=== PATIENT | female | born 1965 | race African-American/Black ===

== ENCOUNTER 2018-10-03 11:51 | Emergency (ER) | payer MEDICARE, OTHER ==
[2018-10-03] MEDS ORDERED: Azithromycin 250 MG TAB ONE (12:40)
[2018-10-03] MEDS ORDERED: Benzonatate 100 MG CAP ONE (12:40)
--- NOTE | 2018-10-03 22:27 | RAD ---
CHEST TWO VIEWS: 10/03/18 Comparison is made with the 07/12/18 study. The heart is moderately enlarged, probably a little more so than the 2018 film. The upper lobe vessels do not appear grossly congested. There is a little hazi ness in the lung bases, some of which is due to overlying soft tissues. There is a little more focal haziness to the right of the heart on the PA film though I cannot absolutely confirm an infiltrate h ere on the lateral. Serial films and further studies may be needed to assess if this slight increase in density to the right of the heart is real (perhaps infection) or not. IMPRESSION: 1. Cardiomegaly without clear congestive change. 2. Very slight increase in density to the right of the heart. Further followup needed to tell if it is significant or not. POS: HOME
== END 2018-10-03 12:48 | disposition home or self-care (01) ==
LOC: BURERS 11:51
DX: J18.9 Pneumonia, unspecified organism (principal); E11.9 Type 2 diabetes mellitus without complications; E78.5 Hyperlipidemia, unspecified; I25.2 Old myocardial infarction; Z87.891 Personal history of nicotine dependence
CPT/HCPCS: 71046; 87804

== ENCOUNTER 2018-10-11 16:39 | Emergency (ER) | payer MEDICARE, OTHER ==
[2018-10-11] MEDS ORDERED: Lidocaine Viscous Sol 2% 15 ml UD Cup ONE (16:54)
[2018-10-11] MEDS ORDERED: Mag-Al Plus 1200 MG/1200 MG/120 MG/30 ML UDCUP ONE (16:54)
[2018-10-11 17:14] LABS: #Basophils 0.1 thou/uL (0.0-0.2); #Eosinphils 0.1 thou/uL (0.0-0.7); #Lymphocytes 1.9 thou/uL (1.20-3.40); #Monocytes 0.8 thou/uL (0.11-0.59); #Neutrophils 5.2 thou/uL (1.40-6.50); %Basophils 1.4 % (0.0-1.0); %Eosinophils 0.7 % (0.0-10.0); %Lymphocytes 23.5 % (21.0-51.0); %Monocytes 9.6 % (0.0-10.0); %Neutrophils 64.9 % (42.0-75.0); Hemoglobin 14.4 g/dL (12.0-16.0); Mean Corpuscular HGB CONC 32.9 g/dL (32.0-36.0); Mean Corpuscular Hemoglobin 26.3 pg (27.0-31.0); Platelet Count 295 thou/uL (130-400); RBC Distribution Width 15.5 % (11.5-14.5); Red Blood Cell (RBC) Count 5.47 mill/uL (4.20-5.40); White Blood Cell (WBC) Count 8.1 thou/uL (4.8-10.8)
[2018-10-11] MEDS ORDERED: predniSONE 20 MG TAB ONE (17:19)
[2018-10-11 17:29] LABS: ALT (SGPT) 74 U/L (8-55); AST (SGOT) 44 U/L (5-34); Albumin 3.7 g/dL (3.5-5.0); Alkaline Phosphatase 120 U/L (40-150); Anion Gap 15 mmol/L (10-20); BUN (Urea Nitrogen) 9 mg/dL (9.8-20.1); Bilirubin, Total 2.3 mg/dL (0.2-1.2); Calc. Creatinine Clearance 0 mL/min (70-130); Calcium 8.6 mg/dL (7.8-10.44); Carbon Dioxide 23 mmol/L (22-29); Chloride 101 mmol/L (98-107); Estimated GFR-MDRD 72; Glucose 212 mg/dL (70-105); Lipase 23 U/L (8-78); Potassium 3.8 mmol/L (3.5-5.1); Protein, Total 6.7 g/dL (6.0-8.3); Sodium 135 mmol/L (136-145)
[2018-10-11] MEDS ORDERED: Haloperidol Lactate 5 MG/ML VIAL ONE (17:29)
[2018-10-11 17:49] LABS: CKMB 3.6 ng/mL (0-6.6)
[2018-10-11 17:52] LABS: Acetaminophen Less than 6.0 mcg/mL (10.0-30.0); Alcohol Less than 10 mg/dL (Less than 10); Salicylate Less than 8.0 mg/dL (15.0-30.0)
[2018-10-11] MEDS ORDERED: Cefepime 1 GM VIAL ONE (18:17)
--- NOTE | 2018-10-11 18:28 | RAD ---
PORTABLE CHEST: Date: 10-11-18 An AP portable film at 1649 is compared with an 07-12-18 study. FINDINGS: There is some opacity in each lower lobe. The upper lobes are relatively clear. I am not impressed by any significant vascular congestion. The heart is mildly enlarged. There are no observable effusions . IMPRESSION: Bibasilar patchy density. See CT report to follow. POS: HOME
[2018-10-11] MEDS ORDERED: Sterile Water 100 ML ONE (18:32)
--- NOTE | 2018-10-11 18:45 | CT ---
CT ABDOMEN AND PELVIS WITH CONTRAST: Date: 10-11-[address] of the abdomen and pelvis was done for evaluation of nausea and vomiting. The patient has a lso been coughing and wheezing. Comparison: CT angio of chest, 07-12-18. FINDINGS: The major finding on this study is patchy dense alveolar opacities in each lower lobe. Each is quite dense and is devoid of air bronchograms. The periphery of the lungs is spared. There are no signs of significant pleural fluid. There were some somewhat patchy densities present on the June scan, bu t these were more widespread and in different locations. The previous findings were thought to be jacques eolar edema. The vary high density of the findings today suggest entities such as pulmonary hemorrhag e. Unusual infections should be considered, for example fungal infections. These infiltrative areas a re fleeting in that they have changed locations since June making less common entities such as al veolar proteinosis unlikely. Bronchoscopy is recommended for evaluation. The visible portions of the patient's heart shows global cardiac enlargement. I would note that the patient's plain chest radiogr aph shows minimal congestion of upper lobe vessels. The liver is slightly generous in size but otherwise appears normal, as does the spleen, pancreas, ad renal glands, kidneys, and abdominal aorta. There might be a tiny calcification in the gallbladder bu t this is equivocal at best and would be better assessed by ultrasound. The bowel shows no distention, wall thickening, or becca intestinal inflammatory change. The appendix appears normal. CT of the pelvis shows no abnormal fluid collections, masses, or free fluid. IMPRESSION: 1. Very dense alveolar infiltrates in the lower lobes bilaterally without pleural fluid and in differ ent locations than similar findings seen in June. See discussion above. Entities such as pulmonar y hemorrhage, or unusual infections should be some of the leading possibilities. Alveolar edema seems unlikely today in the absence of pleural fluid and other typical findings of CHF. 2. Mild hepatic enlargement without any internal focal findings. To some extent this could even be du e to passive congestion. Findings discussed with Dr. Loo at 1805 on 10-11-18. POS: HOME
== END 2018-10-11 18:50 | disposition short-term general hospital (02) ==
LOC: BURERS 16:39
DX: J18.9 Pneumonia, unspecified organism (principal); E11.9 Type 2 diabetes mellitus without complications; F31.9 Bipolar disorder, unspecified; E78.5 Hyperlipidemia, unspecified; I25.2 Old myocardial infarction; Z87.891 Personal history of nicotine dependence
CPT/HCPCS: 71045; 74177; 80053; 80307; 82553; 83605; 83690; 83880; 84484; 85025; 87040; 87804; 96361; 96374; 96375; J0692; J1630; J3370

== ENCOUNTER 2018-11-06 08:45 | Emergency (ER) | payer MEDICARE, OTHER ==
[2018-11-06] MEDS ORDERED: Cephalexin 500 MG CAP ONE (09:08)
[2018-11-06] MEDS ORDERED: Adacel (T-DAP) 0.5 ML SYRINGE ONE (09:09)
[2018-11-06] MEDS ORDERED: Triple Antibiotic Oint 1 GM Packet ONE (09:44)
--- NOTE | 2018-11-06 14:06 | RAD ---
LEFT TOE 3 VIEWS: Date: 11/06/18 HISTORY: Diabetic toe pain and injury. Cut to plantar side of toe. FINDINGS: There is soft tissue swelling of the great toe distal phalanx. No acute fracture. Mild degenerative d isease of the great toe metatarsophalangeal joint. IMPRESSION: No acute fracture or malalignment. POS: JANIE
== END 2018-11-06 09:50 | disposition home or self-care (01) ==
LOC: BURERS 08:45
DX: S90.412A Abrasion, left great toe, initial encounter (principal); E11.9 Type 2 diabetes mellitus without complications; E78.5 Hyperlipidemia, unspecified; I25.2 Old myocardial infarction; F31.9 Bipolar disorder, unspecified; Z87.891 Personal history of nicotine dependence; Z79.899 Other long term (current) drug therapy; Z79.82 Long term (current) use of aspirin; Z79.84 Long term (current) use of oral hypoglycemic drugs; W22.8XXA Striking against or struck by other objects, initial encounter
CPT/HCPCS: 90471; 90715

== ENCOUNTER 2018-11-25 14:26 | Emergency (ER) | payer MEDICARE, OTHER ==
[2018-11-25] MEDS ORDERED: Ondansetron PF 4 MG/2 ML Vial ONE (15:22)
[2018-11-25] MEDS ORDERED: Famotidine In NaCl 20 mg/50 ml Premix Bag ONE (15:22)
[2018-11-25 16:19] LABS: Clarity SLIGHTLY (Clear); Glucose, Urine (Dipstick) 100 mg/dL (Negative); Leukocyte Negative (Negative); Nitrite Negative (Negative); Protein, Urine (Dipstick) 30 mg/dL (Neg-Trace); Specific Gravity, Urine 1.015 (1.005-1.030); pH, Urine 5.5 (5.0-9.0)
[2018-11-25 16:20] LABS: Bilirubin Negative (Negative); Blood, Urine Trace (Negative)
[2018-11-25 16:27] LABS: Bacteria/HPF None Seen HPF (None Seen); RBC/HPF 0-3 HPF (0-3); Renal Epithelial None Seen HPF (0-3); Squamous Epithelial 0-3 HPF (0-3); Transitional Epithelial NONE SEEN HPF (0-3); Trichomonas/HPF None Seen HPF (None Seen); WBC/HPF None Seen HPF (0-3); Yeast-All Forms None Seen HPF (None Seen)
[2018-11-25 16:28] LABS: Crystals/HPF None Seen HPF (Negative); Hyaline Casts/LPF NONE SEEN LPF (0-3 Hyaline); Other Casts/LPF None Seen LPF (0-3 Hyaline); Oval Fat Bodies/HPF None Seen HPF (None Seen); Sperm/HPF None Seen HPF (None Seen)
== END 2018-11-25 16:45 | disposition home or self-care (01) ==
LOC: BURERS 14:26
DX: R11.2 Nausea with vomiting, unspecified (principal); I25.2 Old myocardial infarction; E11.9 Type 2 diabetes mellitus without complications; E78.2 Mixed hyperlipidemia; I10 Essential (primary) hypertension; F31.9 Bipolar disorder, unspecified; Z87.891 Personal history of nicotine dependence; Z79.899 Other long term (current) drug therapy; Z79.82 Long term (current) use of aspirin
CPT/HCPCS: 81003; 81015; 96365; 96375; J2405

== ENCOUNTER 2018-11-29 03:25 | Emergency (ER) | payer MEDICARE, OTHER ==
[2018-11-29 04:12] LABS: #Basophils 0.1 thou/uL (0.0-0.2); #Eosinphils 0.1 thou/uL (0.0-0.7); #Lymphocytes 2.6 thou/uL (1.20-3.40); #Monocytes 0.7 thou/uL (0.11-0.59); #Neutrophils 2.6 thou/uL (1.40-6.50); %Basophils 1.1 % (0.0-1.0); %Eosinophils 1.4 % (0.0-10.0); %Lymphocytes 42.6 % (21.0-51.0); %Neutrophils 43.9 % (42.0-75.0); Hemoglobin 12.7 g/dL (12.0-16.0); Mean Corpuscular HGB CONC 31.9 g/dL (32.0-36.0); Mean Corpuscular Hemoglobin 25.2 pg (27.0-31.0); Mean Corpuscular Volume 78.8 fL (78.0-98.0); Mean Platelet Volume 6.1 fL (7.4-10.4); Platelet Count 239 thou/uL (130-400); RBC Distribution Width 19.1 % (11.5-14.5); Red Blood Cell (RBC) Count 5.04 mill/uL (4.20-5.40)
[2018-11-29 04:30] LABS: ALT (SGPT) 38 U/L (8-55); AST (SGOT) 37 U/L (5-34); Albumin 3.5 g/dL (3.5-5.0); Alkaline Phosphatase 103 U/L (40-150); Anion Gap 17 mmol/L (10-20); Anisocytosis SLIGHT = 6-15 cells (100X) (0-5/hpf); BUN (Urea Nitrogen) 13 mg/dL (9.8-20.1); Bilirubin, Total 2.8 mg/dL (0.2-1.2); Calc. Creatinine Clearance 0 mL/min (70-130); Calcium 8.5 mg/dL (7.8-10.44); Carbon Dioxide 22 mmol/L (22-29); Chloride 103 mmol/L (98-107); Estimated GFR-MDRD 57; Globulin 2.7 g/dL (2.4-3.5); Glucose 196 mg/dL (70-105); Lipase 25 U/L (8-78); MDiff Complete? YES; Platelet Morphology Comment Appears Adequate; Protein, Total 6.2 g/dL (6.0-8.3); Sodium 138 mmol/L (136-145)
[2018-11-29 04:35] LABS: Bilirubin Small (Negative); Blood, Urine Trace (Negative); Clarity Slightly Cloudy (Clear); Glucose, Urine (Dipstick) Negative (Negative); Leukocyte Negative (Negative); Nitrite Negative (Negative); Protein, Urine (Dipstick) 100 mg/dL (Neg-Trace); Specific Gravity, Urine 1.015 (1.005-1.030); Urobilinogen > or = 8.0 mg/dL (0.2-1.0); pH, Urine 5.5 (5.0-9.0)
[2018-11-29 04:39] LABS: Bacteria/HPF Rare-Few HPF (None Seen); RBC/HPF 0-3 HPF (0-3); WBC/HPF 0-3 HPF (0-3)
[2018-11-29 04:46] LABS: CKMB 1.7 ng/mL (0-6.6)
[2018-11-29] MEDS ORDERED: Haloperidol Lactate 5 MG/ML VIAL ONE (05:46)
--- NOTE | 2018-11-29 09:28 | RAD ---
CHEST 2 VIEWS: Date: 11/29/18 Comparison made with the 11/26/18 study. FINDINGS: The heart is enlarged, but no more so than before. There are no clear congestive changes or pleural e ffusions. No focal pulmonary infiltrate was appreciated. IMPRESSION: Cardiomegaly, but no acute findings. POS: HOME
--- NOTE | 2018-11-29 09:29 | RAD ---
ABDOMEN 2 VIEWS: Date: 11/29/18 Supine and erect films show no free air beneath the diaphragm. The gas pattern is normal with no sign of obstruction. There is a moderate amount of fecal material in the colon, particularly the left col on. The pelvic calcifications are most likely vascular in nature. The bony structures show no acute c hange. IMPRESSION: At most, mild constipation. POS: HOME
--- NOTE | 2018-11-29 09:38 | CT ---
CT OF THE THORAX WITHOUT CONTRAST: Date: 11/29/18 INDICATION: Cough with history of pneumonia. COMPARISON: Prior exam dated 10/12/18 CT PE exam. FINDINGS: The dense alveolar air space disease on the prior exam has cleared. There are areas of subsegmental v olume loss within the lung bases, predominantly in the right middle lobe and lingula. No confluent ai r space opacity is evident. There is hazy ground-glass opacity within both lungs. There is mild cardi omegaly. No pleural effusion is grossly evident. There is a stable 1.2 cm precarinal lymph node. There are some mildly prominent lymph nodes seen with in the right paratracheal region. No enlarged lymph nodes are seen in the axilla. There is a small hiatal hernia. There is multilevel spondylosis of the thoracic spine. No definite acute osseous abnormality is evide nt. IMPRESSION: 1. Cardiomegaly with some mild hazy air space opacity seen bilaterally may reflect changes of underl brooke mild CHF or volume overload. Hypersensitivity/allergy versus atypical infection not excluded. R ecommend correlation. There is no dense airspace consolidation to suggest presence of bacterial pneum onia. The previous alveolar opacities seen on the comparison examination from 10/12/18 have intervall y cleared. No brigid pleural effusion evident. 2. Stable mildly prominent lymph nodes within the precarinal region and right paratracheal region of the mediastinum. This may be reactive in nature, but would recommend continued CT follow-up. 3. Other chronic findings as above. POS: MARILYNN
== END 2018-11-29 06:05 | disposition short-term general hospital (02) ==
LOC: BURERS 03:25
DX: R11.2 Nausea with vomiting, unspecified (principal); R79.89 Other specified abnormal findings of blood chemistry; R93.89 Abnormal findings on diagnostic imaging of other specified body structures; I25.2 Old myocardial infarction; E11.9 Type 2 diabetes mellitus without complications; E78.2 Mixed hyperlipidemia; I10 Essential (primary) hypertension; F31.9 Bipolar disorder, unspecified; Z87.891 Personal history of nicotine dependence; Z79.899 Other long term (current) drug therapy; Z79.82 Long term (current) use of aspirin; Z79.84 Long term (current) use of oral hypoglycemic drugs
CPT/HCPCS: 36415; 71046; 71250; 74019; 80053; 81003; 81015; 82553; 83605; 83690; 84484; 85025; 93005; 96372; J1630

== ENCOUNTER 2019-01-06 18:24 | Emergency (ER) | payer MEDICARE, OTHER ==
[2019-01-06] MEDS ORDERED: Promethazine HCl 25 MG/ML VIAL ONE (18:48)
[2019-01-06 19:04] LABS: Bilirubin Small (Negative); Blood, Urine Trace (Negative); Clarity Clear (Clear); Glucose, Urine (Dipstick) Negative (Negative); Leukocyte Negative (Negative); Nitrite Negative (Negative); Protein, Urine (Dipstick) 30 mg/dL (Neg-Trace); Specific Gravity, Urine 1.015 (1.005-1.030); pH, Urine 5.5 (5.0-9.0)
[2019-01-06 19:05] LABS: Bacteria/HPF None Seen HPF (None Seen); RBC/HPF 0-3 HPF (0-3); Squamous Epithelial 0-3 HPF (0-3); WBC/HPF 0-3 HPF (0-3)
[2019-01-06 19:18] LABS: ALT (SGPT) 28 U/L (8-55); AST (SGOT) 25 U/L (5-34); Albumin 4.1 g/dL (3.5-5.0); Alkaline Phosphatase 117 U/L (40-150); Anion Gap 17 mmol/L (10-20); BUN (Urea Nitrogen) 11 mg/dL (9.8-20.1); Bilirubin, Total 3.8 mg/dL (0.2-1.2); Calc. Creatinine Clearance 0 mL/min (70-130); Calcium 9.4 mg/dL (7.8-10.44); Carbon Dioxide 26 mmol/L (22-29); Chloride 97 mmol/L (98-107); Estimated GFR-MDRD 77; Globulin 3.6 g/dL (2.4-3.5); Glucose 168 mg/dL (70-105); Lipase 26 U/L (8-78); Potassium 3.3 mmol/L (3.5-5.1); Protein, Total 7.7 g/dL (6.0-8.3); Sodium 137 mmol/L (136-145)
[2019-01-06 19:25] LABS: #Basophils 0.1 thou/uL (0.0-0.2); #Eosinphils 0.2 thou/uL (0.0-0.7); #Lymphocytes 2.9 thou/uL (1.20-3.40); #Monocytes 0.4 thou/uL (0.11-0.59); #Neutrophils 2.5 thou/uL (1.40-6.50); %Lymphocytes 47.2 % (21.0-51.0); %Monocytes 6.9 % (0.0-10.0); %Neutrophils 41.9 % (42.0-75.0); Anisocytosis SLIGHT = 6-15 cells (100X) (0-5/hpf); Elliptocytes SLIGHT = 2-5 cells (100X) (0-1/hpf); Hemoglobin 14.1 g/dL (12.0-16.0); Hypochromia SLIGHT = 6-15 cells (100X) (0-5/hpf); MDiff Complete? YES; Mean Corpuscular HGB CONC 30.3 g/dL (32.0-36.0); Mean Corpuscular Hemoglobin 23.6 pg (27.0-31.0); Mean Corpuscular Volume 78.1 fL (78.0-98.0); Mean Platelet Volume 6.2 fL (7.4-10.4); Microcytosis SLIGHT = 6-15 cells (100X) (0-5/hpf); Platelet Count 248 thou/uL (130-400); Poikilocytosis SLIGHT = 6-15 cells (100X) (0-5/hpf); RBC Distribution Width 18.7 % (11.5-14.5); Red Blood Cell (RBC) Count 5.97 mill/uL (4.20-5.40); Target Cells SLIGHT = 2-5 cells (100X) (0-1/hpf); Tear Drops SLIGHT = 2-5 cells (100X) (0-1/hpf); White Blood Cell (WBC) Count 6.1 thou/uL (4.8-10.8)
== END 2019-01-06 19:50 | disposition home or self-care (01) ==
LOC: BURERS 18:24
DX: R11.2 Nausea with vomiting, unspecified (principal); F31.9 Bipolar disorder, unspecified; Z87.891 Personal history of nicotine dependence
CPT/HCPCS: 36415; 80053; 81003; 81015; 83605; 83690; 85025; 96365; 96372; J0500; J2550